=== PATIENT | female | born 1980 | race Two or more races ===

== ENCOUNTER 2021-10-17 11:25 | Emergency (ER) | payer OTHER ==
[~2021-10-17] VITALS: Ht 165.1 cm; Wt 71.7 kg
[2021-10-17] MEDS ORDERED: KETO10TA2 PO (14:23)
[2021-10-17] MEDS ORDERED: NORFLEX100MG PO (14:23)
== END 2021-10-17 15:18 | disposition home or self-care (01) ==
LOC: ER 11:25
DX: M54.50 Low back pain, unspecified (principal); M54.2 Cervicalgia; Z88.0 Allergy status to penicillin